=== PATIENT | female | born 1990 ===

== ENCOUNTER 2017-01-10 07:15 | Emergency (ER) | payer OTHER ==
[2017-01-10 07:20] VITALS: BMI 25.7
--- NOTE | 2017-01-10 07:38 | C.PDOC ---
History Of Present Illness 26 y/o female presents to ED with complaints of cough, nasal congestion, chest congestion and itchy throat for "a month". Patient also complaints of intermittent febrile but Temperature was not taken. No medications have been taken and patient states cough has increased over time with production of phlegm. Patient denies TROTTER, fever, N/V/D, chills or abdominal pain. No other complaints at this time Time Seen by Provider: 01/10/17 07:25 Chief Complaint (Nursing): Cough, Cold, Congestion History Per: Patient History/Exam Limitations: no limitations Onset/Duration Of Symptoms: Days Current Symptoms Are (Timing): Still Present Associated Symptoms: denies: Fever, Chills Past Medical History Reviewed: Historical Data, Nursing Documentation, Vital Signs Family History: States: No Known Family Hx - Social History Hx Alcohol Use: No Hx Substance Use: No - Immunization History Hx Tetanus Toxoid Vaccination: No Hx Influenza Vaccination: No Hx Pneumococcal Vaccination: No Review Of Systems Except As Marked, All Systems Reviewed And Found Negative. Constitutional: Negative for: Fever, Chills Respiratory: Positive for: Cough Gastrointestinal: Negative for: Nausea, Vomiting, Diarrhea Genitourinary: Negative for: Dysuria Neurological: Negative for: Headache Physical Exam - Physical Exam Appears: Non-toxic, No Acute Distress Skin: Normal Color, Warm Head: Atraumatic, Normacephalic Eye(s): bilateral: Normal Inspection, Other (Watery Eyes) Ear(s): Bilateral: Normal Nose: Other (Nasal Congestion) Oral Mucosa: Moist Throat: Normal Chest: Symmetrical Cardiovascular: Rhythm Regular Respiratory: No Rales, No Rhonchi, No Wheezing Gastrointestinal/Abdominal: Soft, No Tenderness, No Guarding, No Rebound Neurological/Psych: Oriented x3 Disposition Counseled Patient/Family Regarding: Diagnosis, Need For Followup, Rx Given - Disposition Referrals: [facility] [Outside] Disposition: HOME/ ROUTINE Disposition Time: 07:35 Condition: STABLE Additional Instructions: Follow up in clinic. Prescriptions: Prednisone [Deltasone] 40 mg PO DAILY #8 tablet Instructions: Allergies (ED) Forms: Work Excuse - POA Present On Arrival: None - Clinical Impression Clinical Impression: Seasonal allergies - PA / DIRECTOR VISUAL / Resident Statement / has reviewed & agrees with the documentation as recorded. / has examined the patient and agrees with the treatment plan. - Scribe Statement The provider has reviewed the documentation as recorded by the Mikalibadelita Villalta All medical record entries made by the Mikalibadelita were at my direction and personally dictated by me. I have reviewed the chart and agree that the record accurately reflects my personal performance of the history, physical exam, medical decision making, and the department course for this patient. I have also personally directed, reviewed, and agree with the discharge instructions and disposition.
== END 2017-01-10 08:01 | disposition home or self-care (01) ==
LOC: C.ER 07:15
DX: J30.2 Other seasonal allergic rhinitis (principal)